=== PATIENT | male | born 1995 | race Caucasian/White ===

== ENCOUNTER 2022-10-11 23:06 | Emergency (ER) | payer OTHER ==
[~2022-10-11] VITALS: Ht 167.6 cm; Wt 71.7 kg
[2022-10-12] MEDS ORDERED: ONDA-104 PO (00:07)
[2022-10-12] MEDS ORDERED: DIPH1TAB PO (00:07)
[2022-10-12 00:20] VITALS: BP 111/79
[2022-10-12] MEDS ORDERED: DIPHENOXYLATE HCL/ATROPINE 2.5/0.025 MG TAB PO ONE (00:30)
[2022-10-12] MEDS ORDERED: ONDANSETRON ODT 4MG TAB SL ONE (00:30)
== END 2022-10-12 00:21 | disposition home or self-care (01) ==
LOC: EDH 23:06
DX: U07.1 COVID-19 (principal); R19.7 Diarrhea, unspecified; F41.9 Anxiety disorder, unspecified; F32.A Depression, unspecified; F90.9 Attention-deficit hyperactivity disorder, unspecified type; F12.90 Cannabis use, unspecified, uncomplicated
CPT/HCPCS: 99283; 87635; 87804 ×2; C9803

== ENCOUNTER 2023-02-27 21:02 | Emergency (ER) | payer OTHER ==
[~2023-02-27] VITALS: Ht 182.9 cm; Wt 74.8 kg
[~2023-02-27 21:02] MED LIST: DIPH1TAB PO; ONDA-104 PO
[2023-02-27 21:10] VITALS: BP 121/73
[2023-02-27 21:19] LABS: BASOPHILS % (AUTO) 0.7 % (0.0-5.0); HEMATOCRIT 40.2 % (42-54); LYMPHOCYTES % (AUTO) 33.6 % (21.0-51.0); MEAN CORPUSCULAR HEMOGLOBIN 30.6 pg (27.0-33.0); MEAN CORPUSCULAR HGB CONC 34.6 g/dL (32.0-36.0); MEAN CORPUSCULAR VOLUME 88.5 fL (79-99); MONOCYTES % (AUTO) 5.4 % (3.0-13.0); PLATELET COUNT (AUTO) 279 K/uL (130-400); RED BLOOD CELL COUNT(AUTO) 4.54 MIL/uL (4.50-6.20); RED CELL DISTRIBUTION WIDTH 12.6 % (11.0-15.5); WHITE BLOOD COUNT (AUTO) 9.6 K/uL (4.8-10.8)
[2023-02-27 21:39] LABS: CREATININE 1.2 mg/dL (0.5-1.5)
[2023-02-27 21:43] LABS: ALBUMIN 4.4 g/dL (3.5-5.0); TOTAL PROTEIN, SERUM 7.4 g/dL (6.0-8.3)
[2023-02-28] MEDS ORDERED: NAPROXEN 500 MG TABLET PO ONE (01:00)
[2023-02-28] MEDS ORDERED: NAPR-1180 PO (01:04)
== END 2023-02-28 01:19 | disposition home or self-care (01) ==
LOC: EDH 21:02
DX: R09.1 Pleurisy (principal); R07.81 Pleurodynia; F17.200 Nicotine dependence, unspecified, uncomplicated; F41.9 Anxiety disorder, unspecified; F32.A Depression, unspecified
CPT/HCPCS: 36415; 71045; 80053; 84484; 85025; 85378; 93005